=== PATIENT | male | born 1985 | race Two or more races ===

== ENCOUNTER 2017-02-02 15:40 | Emergency (ER) | payer SELFPAY ==
[2017-02-02 16:01] VITALS: BP 117/65
[2017-02-02 16:15] LABS: % BASOPHILS 0.9 % (0.0-2.0); % EOSINOPHILS 1.3 % (0.0-5.0); % LYMPHOCYTES 24.9 % (20.0-50.0); % MONOCYTES 3.6 % (2.0-10.0); % NEUTROPHILS 69.3 % (40.0-80.0); HEMATOCRIT 44.3 % (39.0-49.0); HEMOGLOBIN 15.3 gm/dL (13.2-17.3); MEAN CELL VOLUME 87.9 fl (80-99); MEAN CORPUSCULAR HEMOGLOBIN 30.4 pg (26.0-30.0); MEAN CORPUSCULAR HGB CONC 34.6 pg (28.0-36.0); MEAN PLATELET VOLUME 8.4 fl; PLATELET COUNT 227 Th/cmm (150-400); RED BLOOD COUNT 5.04 Mil/cmm (4.30-5.70); RED CELL DISTRIBUTION WIDTH 11.3 % (11.5-20.0); WHITE BLOOD COUNT 8.6 Th/cmm (4.8-10.8)
[2017-02-02 16:33] LABS: ALB/GLOB RATIO 1.9 (1.0-1.8); ALKALINE PHOSPHATASE 50 U/L (34-104); ANION GAP 7.3 (7.0-16.0); BILIRUBIN,TOTAL 0.8 mg/dL (0.3-1.0); BUN - UREA NITROGEN 14 mg/dL (7-25); BUN/CREATININE RATIO 17.5; CALCIUM SERUM 9.4 mg/dL (8.6-10.3); CHLORIDE 107 mEq/L (98-107); CREATININE - SERUM 0.8 mg/dL (0.7-1.3); GLUCOSE 91 mg/dL (70-105); POTASSIUM SERUM 4.3 mEq/L (3.5-5.1); SGOT 28 U/L (13-39); SGPT/ALT 30 U/L (7-52); SODIUM SERUM 136 mEq/L (136-145)
[2017-02-02 16:34] LABS: CHOLESTEROL 194 mg/dL (<200); TRIGLYCERIDES 169 mg/dL (<150)
--- NOTE | 2017-02-02 16:38 | ED Physician Chart ---
Chief Complaint/HPI - Patient Information Date Seen:: 02/02/17 Time Seen:: 16:03 Chief Complaint:: CHEST PAIN History of Present Illness:: THIS IS A 31 YO WHO HAS HAD CHEST PAIN THAT STARTED THREE DAYS AGO AFTER AN EPISODE ACID REFLEX. HE HAS SINCE HAD PAIN INSIDE OF THE CENTER OF THE CHEST. HE DENIES DIAPHORESIS, HEART PAIN, SOB, FEVER, COUGH AND LUNG CONGESTION. HE DENIES ANY PREVIOUS HEART DISEASE, DIABETES AND HYPERTENSION. HE DENIES GERD AND ULCER DISEASE. HE HAS HAD ONLY ONE EPISODE OF VOMITING. Allergies:: Allergies Allergy/AdvReac Type Severity Reaction Status Date / Time No Known Allergies Allergy Verified 05/16/16 07:15 Vitals:: Vital Signs - 8 hr 02/02/17 15:58 Temp 98.5 F HR 79 RR 15 BP 117/65 O2 Sat % 97 Historian:: Patient, Family Member Review:: Nurse's Note Reviewed Review of Systems - Review of Systems General/Constitutional: No fever, No chills, No weight loss, No weakness, No diaphoresis, No edema, No loss of appetite Skin: No skin lesions, No rash, No bruising Head: No headache, No light-headedness Eyes: No loss of vision, No pain, No diplopia ENT: No earache, No nasal drainage, No sore throat, No tinnitus Neck: No neck pain, No swelling, No thyromegaly, No stiffness, No mass noted Cardio Vascular: Chest pain, No palpitations, No PND, No orthopnea, No edema Pulmonary: No SOB, No cough, No sputum, No wheezing GI: Nausea, Vomiting, No diarrhea, Pain, No melena, No hematochezia, No constipation, No hematemesis G/U: No dysuria, No frequency, No hematuria Musculoskeletal: No bone or joint pain, No back pain, No muscle pain Endocrine: No polyuria, No polydipsia Psychiatric: No prior psych history, No depression, No anxiety, No suicidal ideation Hematopoietic: No bruising, No lymphadenopathy Allergic/Immuno: No urticaria, No angioedema Neurological: No syncope, No focal symptoms, No weakness, No paresthesia, No headache, No seizure, No dizziness, No confusion, No vertigo Past Medical History - Past Medical History Obtainable: Yes Past Medical History: No significant medical hx Family History: None Social History: Non Smoker, No Alcohol, No Drug Use, Employed Surgical History: None Psychiatricy History: None Medication: Reviewed Family Medical History - Family Member Mother History Unknown: Yes Physical Exam - Physical Examination General/Constitutional: Awake, Well-developed, well-nourished, Alert, No distress, GCS 15, Non-toxic appearing, Ambulatory Head: Atraumatic Eyes: Lids, conjuctiva normal, PERRL, EOMI Skin: Nl inspection, No rash, No skin lesions, No ecchymosis, Well hydrated, No lymphadenopathy ENMT: External ears, nose nl, Nasal exam nl, Lips, teeth, gums nl Neck: Nontender, Full ROM w/o pain, No JVD, No nuchal rigidity, No bruit, No mass, No stridor Respiratory: Nl effort/Exclusion, Clear to Auscultation, No Wheeze/Rhonchi/Rales Cardio Vascular: RRR, No murmur, gallop, rubs, NL S1 S2 GI: No tenderness/rebounding/guarding, No organomegaly, No hernia, Normal BS's, Nondistended, No mass/bruits, No McBurney tenderness : No CVA tenderness Extremities: No tenderness or effusion, Full ROM, normal strength in all extremities, No edema, Normal digits & nails Neuro/Psych: Alert/oriented, DTR's symmetric, Normal sensory exam, Normal motor strength, Judgement/insight normal, Mood normal, Normal gait, No focal deficits Misc: normal gait, Normal back, No paraspinal tenderness Labs/Radiology/EKG Results - Lab Results Results: Laboratory Tests 02/02/17 16:05 WBC 8.6 RBC 5.04 Hgb 15.3 Hct 44.3 MCV 87.9 MCH 30.4 H MCHC Differential 34.6 RDW 11.3 L Plt Count 227 MPV 8.4 Neutrophils % 69.3 Lymphocytes % 24.9 Monocytes % 3.6 Eosinophils % 1.3 Basophils % 0.9 - EKG Interpretations EKG Time:: 16:00 Rate & Rhythm: RATE=83, NSR [place]: RIGHT AXIS ED Septic Shock - . Is Septic Shock (SBP<90, OR Lactate>4 mmol\L) present?: No - <6hrs of presentation: Vital Signs: Vital Signs - 8 hr 02/02/17 15:58 Temp 98.5 F HR 79 RR 15 BP 117/65 O2 Sat % 97 Reassessment (Disposition) - Reassessment Reassessment Condition:: Improved - Aftercare/Follow up Instructions Aftercare/Follow-Up Instructions:: Counseled pt regarding lab results/diagnosis & need follow up, Refer to Discharge Instructions, Counseled pt & family regarding lab results/diagnosis & need follow up - Patient Disposition Discharge/Transfer:: Home Condition at Disposition:: Improved ED Discharge Plan - Patient Disposition Admit/Discharge/Transfer: PT DISCHARGED HOME Condition at Disposition: Improved
--- NOTE | 2017-02-03 10:13 | Diagnostic Imaging Report ---
CLINICAL INDICATION: Shortness of breath FINDINGS: Heart size is normal. No infiltrates or effusions. No bony thoracic abnormalities. IMPRESSION: Normal chest x-ray.
== END 2017-02-02 18:00 | disposition home or self-care (01) ==
LOC: ER 15:40
DX: R07.89 Other chest pain (principal)
CPT/HCPCS: 36415-UA; 71010-TC; 80053-TC; 80061-TC; 84484-TC; 85025-TC; 93005